=== PATIENT | male | born 1975 | race Caucasian/White ===

== ENCOUNTER → 2018-08-13 | Outpatient (CLI) | payer MEDICAID ==
--- NOTE | 2018-08-13 15:28 | EKG ---
FACILITY: [facility] [place] PATIENT NAME: SILVERIO JUAREZ : [id number] MR: [id number] V: [id number] EXAM DATE: ORDERING PHYSICIAN: ZHANE HILL TECHNOLOGIST: Test Reason : ELEVATED BP Blood Pressure : / mmHG Vent. Rate : 095 BPM Atrial Rate : 095 BPM P-R Int : 146 ms QRS Dur : 098 ms QT Int : 380 ms P-R-T Axes : 054 048 029 degrees QTc Int : 477 ms Normal sinus rhythm Normal ECG No previous ECGs available Confirmed by GROVER BOONE ([id number]) on 08/14/2018 6:36:52 AM Referred By: Confirmed By:GROVER BOONE
--- NOTE | 2018-08-13 15:34 | RADIOLOGY IMAGING REPORT ---
FACILITY: [facility] PATIENT NAME: Giorgi Mccauley : 1975 MR: [id number] V: [id number] EXAM DATE: ORDERING PHYSICIAN: ERICKA HILL TECHNOLOGIST: Location: [facility] Patient: Giorgi Mccauley : 1975 Visit/Account:[id number] Date of Sevice: 08/13/2018 Exam type: CHEST PA LAT History: Tachycardia, elevated blood pressure Comparison: None. Findings: The lungs are free of focal infiltrates, pleural effusions or pulmonary edema. The cardiac silhouett e is normal in size. The trachea is in midline. Visualized bones are unremarkable for age IMPRESSION: 1. No acute cardiopulmonary process is seen Report Dictated By: Jessika Conrad MD at 08/13/2018 3:29 PM Report E-Signed By: Jessika Conrad MD at 08/13/2018 3:30 PM WSN:[id number]
== END ==
LOC: RAD 14:43
PROVIDERS: ATTEND Nurse Practitioner Family
DX: R00.0 Tachycardia, unspecified (principal); R03.0 Elevated blood-pressure reading, without diagnosis of hypertension
CPT/HCPCS: 71046; 93005

== ENCOUNTER → 2018-11-20 | Outpatient (CLI) | payer MEDICAID | LOC: LAB 09:55 | PROVIDERS: ATTEND Nurse Practitioner Family | DX: R82.90 Unspecified abnormal findings in urine (principal) | CPT/HCPCS: 36415; 82040; 82247; 82310; 82374; 82435; 82550; 82565; 82947; 84075; 84132; 84155; 84295; 84450; 84460; 84520 ==